=== PATIENT | female | born 1945 | race Two or more races ===

== ENCOUNTER 2018-11-26 16:29 | Inpatient (IN) | payer MEDICARE, OTHER ==
[~2018-11-26] VITALS: Ht 157.5 cm; Wt 74.4 kg
--- NOTE | 2018-11-26 16:30 | NUR ---
PT BIBA C/O LOWER BACK PAIN S/P FALL 2 DAYS AGO S/P LOSING HER BALANCE, DENIES KO, PT IS AAOX3, NOT IN RESPIRATORY DISTRESS, VS STABLE, KEPT RESTED AND COMFORTABLE.
--- NOTE | 2018-11-26 17:25 | NUR ---
SEEN AND EXAMINED BY SONJA PALMER
[2018-11-26] MEDS ORDERED: ONDANSETRON 4 MG TAB.RAPDIS SL ONE (17:30)
[2018-11-26] MEDS ORDERED: HYDROCODONE/APAP 10/325MG 1 EA TABLET PO ONE (17:30)
[2018-11-26] MEDS ORDERED: HYDROCODONE/APAP 10/325MG 1 EA TABLET ONE (17:42)
[2018-11-26] MEDS ORDERED: ONDANSETRON 4 MG TAB.RAPDIS ONE (17:43)
--- NOTE | 2018-11-26 17:58 | NUR ---
PT IS WHEELED TO CT SCAN.
--- NOTE | 2018-11-26 18:00 | NUR ---
WHEELED TO CT SCAN VIA [facility].
[2018-11-26 18:59] LABS: BASOPHILS # (AUTO) 0.1 /CMM (0.0-0.2); BASOPHILS % (AUTO) 1.2 % (0.0-2.0); HEMATOCRIT 41 % (33-45); HEMOGLOBIN 13.8 g/dL (11.5-14.8); LYMPHOCYTES # (AUTO) 2.3 /CMM (0.8-4.8); LYMPHOCYTES % (AUTO) 29.2 % (20.0-44.0); MEAN CORPUSCULAR HGB CONC 33 g/dl (31.0-36.0); MEAN CORPUSCULAR VOLUME 83 fL (82-100); MONOCYTES # (AUTO) 0.6 /CMM (0.1-1.30); MONOCYTES % (AUTO) 8.1 % (2.0-12.0); NEUTROPHILS # (AUTO) 4.6 /CMM (1.8-8.9); NEUTROPHILS % (AUTO) 57.5 % (43.0-81.0); PLATELET COUNT (AUTO) 225 /CMM (150-450); RED BLOOD CELL COUNT(AUTO) 4.97 MIL/uL (4.0-5.2)
[2018-11-26 19:14] LABS: CALCIUM, SERUM 8.9 mg/dL (8.5-10.1); CARBON DIOXIDE 27 mmol/L (21-32); CHLORIDE 108 mmol/L (98-107); CREATININE 0.7 mg/dL (0.6-1.3); GLUCOSE 92 mg/dL (74-106); POTASSIUM 5.2 mmol/L (3.5-5.1); SODIUM SERUM 142 mmol/L (136-145); UREA NITROGEN, BLOOD 20 mg/dL (7-18)
--- NOTE | 2018-11-26 19:22 | NUR ---
REPORT GIVEN TO VAHID STEVE FOR JATIN.
--- NOTE | 2018-11-26 19:26 | NUR ---
REC'D REPORT FROM VAHID العلي FOR JATIN
[2018-11-26 19:52] LABS: APPEARANCE,URINE Clear (CLEAR); BILIRUBIN,URINE Negative (NEGATIVE); BLOOD, URINE Trace-intact Ery/uL (NEGATIVE); COLOR,URINE Yellow (YELLOW); KETONES,URINE Negative (NEGATIVE); LEUKOCYTE ESTERASE ,URINE Negative (NEGATIVE); NITRITE, URINE Negative (NEGATIVE); PH,URINE 6.5 (5.0-8.0); PROTEIN,URINE Negative (NEGATIVE); UGLUCOSE Negative (NEGATIVE); UROBILINOGEN,URINE 0.2 EU/dL (0.2)
--- NOTE | 2018-11-26 19:58 | NUR ---
PT RESTING COMFORTABLY IN BED. VSS. NO COMPLAINTS AT THIS TIME. FAMILY WILL LEAVE SOON.
--- NOTE | 2018-11-26 20:21 | NUR ---
CALLED FOR MS BED
--- NOTE | 2018-11-26 20:21 | NUR ---
NOTIFIED DEANNE LOONEY FOR ADMISSION
[2018-11-26 20:22] LABS: BACTERIA,URINE Few /HPF (None Seen); SQUAMOUS EPITHELIAL CELL,UR Few /HPF (None Seen)
--- NOTE | 2018-11-26 21:10 | NUR ---
UNABLE TO OBTAIN MED LIST
--- NOTE | 2018-11-26 21:44 | NUR ---
REPORT GIVEN TO VAHID ACOSTA FOR 328-2 MS
[2018-11-26 22:00] VITALS: BP_SYST 150; BP_DIAS 69; BP_DIAS 75
--- NOTE | 2018-11-26 22:04 | NUR ---
[facility]
[2018-11-26] MEDS ORDERED: ACETAMINOPHEN 325 MG TABLET PO PRN (22:30)
[2018-11-26] MEDS ORDERED: MAGNESIUM HYDROXIDE 30 ML UDC PO PRN (22:30)
[2018-11-26] MEDS ORDERED: ONDANSETRON HCL/PF 4 MG/2 ML VIAL IVP PRN (22:30)
[2018-11-26] MEDS ORDERED: TEMAZEPAM 7.5 MG CAPSULE PO PRN (22:30)
[2018-11-26] MEDS ORDERED: MAG HYDROX/AL HYDROX/SIMETH 30 ML UDC PO PRN (22:30)
--- NOTE | 2018-11-26 22:45 | NUR ---
MS RN NOTE: RECEIVED PATIENT FROM ER, NO ACUTE DISTRESS NOTED. BREATHING EVEN AND UNLABORED, NO SOB NOTED. IV TO LEFT HAND IN PLACE. ORIENTED PATIENT TO ROOM AND USE OF CALL LIGHT. BED LOCKED AND IN LOWEST POSITION, CALL LIGHT IN REACH. WILL CONTINUE TO MONITOR.
[2018-11-26] MEDS ORDERED: SIMV20TA6 PO (23:10)
[2018-11-26] MEDS ORDERED: OXCA150T5 PO (23:10)
[2018-11-26] MEDS ORDERED: MAGN400T26 PO (23:10)
[2018-11-26] MEDS ORDERED: ZOLP10TA2 PO (23:10)
[2018-11-26] MEDS ORDERED: AMLO5TAB9 PO (23:10)
[2018-11-26] MEDS ORDERED: CELE200C PO (23:10)
[2018-11-27] MEDS: HYDROCODONE/APAP 5/325MG 1 EACH TABLET PO PRN (03:01)
--- NOTE | 2018-11-27 03:04 | NUR ---
MS RN NOTES: PT COMPLAINING OF 7/10 BACK PAIN. PT WAS ADMINISTERED NORCO 5 PO. WILL CONTINUE TO MONITOR.
--- NOTE | 2018-11-27 06:15 | NUR ---
MS RN NOTE: PATIENT RESTING IN BED, NO ACUTE DISTRESS NOTED. BREATHING EVEN AND UNLABORED, NO SOB NOTED. IV TO LEFT HAND IN PLACE. BED LOCKED AND IN LOWEST POSITION, CALL LIGHT IN REACH. WILL ENDORSE TO DAY NURSE TO CONTINUE WITH PLAN OF CARE.
[2018-11-27 06:16] LABS: BASOPHILS # (AUTO) 0.1 /CMM (0.0-0.2); EOSINOPHILS % (AUTO) 3.9 % (0.0-6.0); HEMATOCRIT 40 % (33-45); HEMOGLOBIN 13.2 g/dL (11.5-14.8); LYMPHOCYTES # (AUTO) 2.4 /CMM (0.8-4.8); LYMPHOCYTES % (AUTO) 32.2 % (20.0-44.0); MEAN CORPUSCULAR HGB CONC 33 g/dl (31.0-36.0); MEAN CORPUSCULAR VOLUME 83 fL (82-100); MONOCYTES # (AUTO) 0.6 /CMM (0.1-1.30); MONOCYTES % (AUTO) 8.4 % (2.0-12.0); NEUTROPHILS % (AUTO) 54.5 % (43.0-81.0); PLATELET COUNT (AUTO) 205 /CMM (150-450); RED BLOOD CELL COUNT(AUTO) 4.83 MIL/uL (4.0-5.2); WHITE BLOOD COUNT (AUTO) 7.4 K/uL (4.3-11.0)
[2018-11-27 07:01] LABS: CHOLESTEROL 153 mg/dL (<200); HDL CHOLESTEROL 50 mg/dL (40-60); LDL 93 mg/dL (0-99); THYROID STIMULATING HORMONE 2.626 uIU/mL (0.358-3.74); TRIGLYCERIDES 50 mg/dL (30-150)
[2018-11-27 07:02] LABS: CARBON DIOXIDE 29 mmol/L (21-32); CHLORIDE 108 mmol/L (98-107); CREATININE 0.8 mg/dL (0.6-1.3); GLUCOSE 103 mg/dL (74-106); MAGNESIUM 2.1 mg/dL (1.8-2.4); PHOSPHORUS 4.6 mg/dL (2.5-4.9); SODIUM SERUM 146 mmol/L (136-145); UREA NITROGEN, BLOOD 20 mg/dL (7-18)
[2018-11-27] MEDS: PANTOPRAZOLE 40 MG TABLET.DR PO SCH (07:30)
[2018-11-27 08:00] VITALS: BP 151/73
[2018-11-27] MEDS: AMLODIPINE BESYLATE 5 MG TABLET PO SCH (09:00)
[2018-11-27] MEDS: OXCARBAZEPINE 150 MG TABLET PO SCH ×2 (09:00→17:00)
[2018-11-27] MEDS: MAGNESIUM OXIDE 400 MG TABLET PO SCH (09:59)
[2018-11-27] MEDS: CELECOXIB 100 MG CAPSULE PO SCH (09:59)
[2018-11-27] MEDS: HYDROCODONE/APAP 10/325MG 1 EA TABLET PO PRN ×3 (10:14→22:21)
[2018-11-27 16:00] VITALS: BP 124/55
[2018-11-27] MEDS ORDERED: SIMVASTATIN 20 MG TABLET PO SCH (18:00)
[2018-11-27] MEDS ORDERED: ZOLPIDEM TARTRATE 10 MG TABLET PO SCH (18:00)
--- NOTE | 2018-11-27 19:50 | NUR ---
MS RN NOTE: PATIENT RESTING IN BED, NO ACUTE DISTRESS NOTED. BREATHING EVEN AND UNLABORED, NO SOB NOTED. IV TO LEFT HAND IN PLACE. BED LOCKED AND IN LOWEST POSITION, CALL LIGHT IN REACH. WILL CONTINUE TO MONITOR.
[2018-11-27 20:22] VITALS: BP 126/62
--- NOTE | 2018-11-27 22:30 | NUR ---
MS RN NOTE: PATIENT COMPLAINS OF BACK PAIN 06/11, NORCO 10/325MG 1 TAB ORAL GIVEN PER MD ORDER. WILL CONTINUE TO MONITOR
[2018-11-28] MEDS: HYDROCODONE/APAP 5/325MG 1 EACH TABLET PO PRN (01:46)
--- NOTE | 2018-11-28 02:00 | NUR ---
MS RN NOTE: PATIENT COMPLAINS OF BACK PAIN 04/10, NORCO 5/325MG 1 TAB ORAL GIVEN PER MD ORDER. WILL CONTINUE TO MONITOR
[2018-11-28 08:00] VITALS: BP 135/75
--- NOTE | 2018-11-28 08:00 | NUR ---
RN NOTES Received patient in the room, a/o x2/3, with confusion. patient going to discharge home. 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 scheduled medication administered, v/s stable. patient need back support brace to d/c home. per daughter she will buy it and bring with her, because patient have another doctors appointment. Notified Cameron SILVA, ok daughter bring from home back brace. call light within to reach. safety precaution maintained all the time.
[2018-11-28] MEDS: OXCARBAZEPINE 150 MG TABLET PO SCH (08:38)
[2018-11-28 08:41] VITALS: BP 135/75
[2018-11-28] MEDS: CELECOXIB 100 MG CAPSULE PO SCH (08:41)
[2018-11-28] MEDS: AMLODIPINE BESYLATE 5 MG TABLET PO SCH (08:41)
[2018-11-28] MEDS: PANTOPRAZOLE 40 MG TABLET.DR PO SCH (08:42)
[2018-11-28] MEDS: MAGNESIUM OXIDE 400 MG TABLET PO SCH (08:42)
--- NOTE | 2018-11-28 10:00 | NUR ---
discharge notes patient discharge at this time going home. Per daughter brought back brace support, patient wearing it and secure to discharge home safety. med reconciliation and discharge order reviewed and explained to patient and daughter. daughter verbalized understanding. Patient had no acute respiratory distress, refused pain at this time, v/s stable, belonging returned back to the patient. Prescription handed to the daughter. Patient will follow primary md. Escorted patient to the lob for safety. 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
== END 2018-11-28 11:20 | disposition home or self-care (01) | DRG 552 ==
LOC: ER 16:36 → MED 21:02
PROVIDERS: ADMIT Nurse Practitioner Acute Care; ATTEND Hospitalist
DX: S32.029A Unspecified fracture of second lumbar vertebra, initial encounter for closed fracture (principal); I69.351 Hemiplegia and hemiparesis following cerebral infarction affecting right dominant side; E87.0 Hyperosmolality and hypernatremia; W18.30XA Fall on same level, unspecified, initial encounter; Y92.89 Other specified places as the place of occurrence of the external cause; E87.5 Hyperkalemia; E78.5 Hyperlipidemia, unspecified; I10 Essential (primary) hypertension; E66.9 Obesity, unspecified; Z68.30 Body mass index [BMI] 30.0-30.9, adult; Z96.653 Presence of artificial knee joint, bilateral; E78.00 Pure hypercholesterolemia, unspecified
CPT/HCPCS: 36415; 71045-TC; 72110-TC; 72131-TC; 80048-TC; 80061-TC; 81000-TC; 83735-TC; 84100-TC; 84443-TC; 85025-TC; 85730-TC; 87081-TC; A6403; G0378; Q0162